=== PATIENT | female | born 1960 | race Caucasian/White ===

== ENCOUNTER 2018-10-20 09:30 | Inpatient (IN) | payer BC ==
[2018-10-20 11:41] LABS: Hemoglobin 14.3 g/dL (12.0-16.0); Mean Corpuscular HGB CONC 32.3 g/dL (32.0-36.0); Mean Corpuscular Hemoglobin 31.3 pg (27.0-31.0); Mean Corpuscular Volume 96.8 fL (78.0-98.0); Mean Platelet Volume 7.6 fL (7.4-10.4); Platelet Count 304 thou/uL (130-400); RBC Distribution Width 12.4 % (11.5-14.5); Red Blood Cell (RBC) Count 4.58 mill/uL (4.20-5.40); White Blood Cell (WBC) Count 10.6 thou/uL (4.8-10.8)
[2018-10-20 12:06] LABS: Anion Gap 15 mmol/L (10-20); BUN (Urea Nitrogen) 16 mg/dL (9.8-20.1); Calc. Creatinine Clearance 0 mL/min (70-130); Calcium 9.6 mg/dL (7.8-10.44); Carbon Dioxide 26 mmol/L (22-29); Chloride 104 mmol/L (98-107); Estimated GFR-MDRD 78; Glucose 90 mg/dL (70-105); Potassium 4.5 mmol/L (3.5-5.1); Sodium 140 mmol/L (136-145)
[2018-10-21] MEDS ORDERED: Fentanyl 250 MCG/5 ML VIAL ONE (06:25)
[2018-10-21] MEDS ORDERED: Midazolam HCl 5 mg/5 ml Vial ONE (06:25)
[2018-10-21] MEDS ORDERED: Albumin 5% 500 ML ONE (06:28)
[2018-10-21] MEDS ORDERED: Heparin 10,000 UNITS/1 ML VIAL 30,000 UNITS in Sodium Chloride 0.9% 1,000 ML FS SCH (06:45)
[2018-10-21] MEDS ORDERED: Midazolam HCl 2 mg/2 ml Vial ONE (06:47)
[2018-10-21] MEDS ORDERED: Fentanyl 100 MCG/2 ML VIAL ONE (10:10)
[2018-10-21] MEDS ORDERED: Protamine Sulfate 50 MG/5 ML VIAL ONE (10:22)
[2018-10-21] MEDS ORDERED: Potassium Chloride 20 MEQ/100 ML PREMIX BAG IVPB PRN (10:30)
[2018-10-21] MEDS ORDERED: Ondansetron PF 4 MG/2 ML Vial IVP PRN (10:30)
[2018-10-21] MEDS ORDERED: Hetastarch 6% 500 ML 500 ML IVPB PRN (10:30)
[2018-10-21] MEDS ORDERED: Promethazine HCl 25 MG/ML VIAL IM PRN (10:30)
[2018-10-21] MEDS ORDERED: hydrALAZINE 20 MG/ML VIAL SLOW IVP PRN (10:30)
[2018-10-21] MEDS ORDERED: Fentanyl 100 MCG/2 ML VIAL SLOW IVP PRN ×2 (10:30)
[2018-10-21] MEDS ORDERED: Mag-Al 1200 mg/1200 mg/30 ML UDCUP PO PRN (10:30)
[2018-10-21] MEDS ORDERED: Magnesium 2 GM/50 ML 2 GM in Premix Bag 1 BAG IVPB SCH (10:30)
[2018-10-21] MEDS ORDERED: Guaifenesin DM 100-10/5 ML UDCUP PO PRN (10:30)
[2018-10-21] MEDS ORDERED: Morphine 2 MG/ML SYRINGE SLOW IVP PRN (10:30)
[2018-10-21] MEDS ORDERED: Bisacodyl 10 MG SUPP PR PRN (10:30)
[2018-10-21] MEDS ORDERED: DOPamine 400 MG/D5W 250 ML 250 ML IVPB PRN (10:30)
[2018-10-21] MEDS ORDERED: Acetaminophen 325 MG TAB PO PRN (10:30)
[2018-10-21] MEDS ORDERED: Post-Op Insulin Drip Protocol IVPB ONE (10:30)
[2018-10-21] MEDS ORDERED: Norepinephrine 8 MG/0.9% NS 250 ML IVPB PRN (10:30)
[2018-10-21] MEDS ORDERED: Bisacodyl 5 MG TAB PO PRN (10:30)
[2018-10-21] MEDS ORDERED: Nitroglycerin 50 MG/250 ML BOT 250 ML IVPB PRN (10:30)
[2018-10-21] MEDS ORDERED: HUMULIN R 100 UNITS in Sodium Chloride 0.9% 100 ML IVPB SCH (10:47)
[2018-10-21] MEDS ORDERED: Dextrose 50% Abboject 50 ML SYRINGE SLOW IVP PRN (10:47)
[2018-10-21] MEDS ORDERED: Dextrose 5% in Water 1,000 ML IV PRN (10:47)
[2018-10-21 11:06] LABS: Actual Bicarbonate (HCO3a) 23.5 mEq/L (22-28); Base Excess (BEa) -1.1 mEq/L (-2.0 to +3.0); CO2 Tension 39.2 mmHg (35.0-45.0); Calcium, Ionized 1.03 mmol/L (1.12-1.30); Carboxyhemoglobin (COHb) 0.9 gm% (0.0-3.0); Hemoglobin (Hb) 12.6 g/dL (12.0-16.0)
[2018-10-21 11:08] LABS: #Eosinphils 0.2 thou/uL (0.0-0.7); #Lymphocytes 1.7 thou/uL (1.20-3.40); #Monocytes 0.3 thou/uL (0.11-0.59); #Neutrophils 9.5 thou/uL (1.40-6.50); %Basophils 0.4 % (0.0-1.0); %Eosinophils 1.7 % (0.0-10.0); %Lymphocytes 14.2 % (21.0-51.0); %Monocytes 2.4 % (0.0-10.0); %Neutrophils 81.2 % (42.0-75.0); Hemoglobin 12.3 g/dL (12.0-16.0); Mean Corpuscular HGB CONC 33.2 g/dL (32.0-36.0); Mean Corpuscular Hemoglobin 31.4 pg (27.0-31.0); Mean Corpuscular Volume 94.6 fL (78.0-98.0); Mean Platelet Volume 7.3 fL (7.4-10.4); Platelet Count 198 thou/uL (130-400); RBC Distribution Width 12.4 % (11.5-14.5); White Blood Cell (WBC) Count 11.7 thou/uL (4.8-10.8)
[2018-10-21 11:12] LABS: INR-International Normal Ratio 1.3; PTT 30.5 SEC (22.9-36.1); Prothrombin Time 16.1 SEC (12.0-14.7)
[2018-10-21] MEDS: Sodium Chloride 0.9% 1,000 ML IV SCH (11:12)
[2018-10-21 11:18] LABS: Puncture Site ALINE
[2018-10-21 11:52] LABS: Anion Gap 13 mmol/L (10-20); BUN (Urea Nitrogen) 10 mg/dL (9.8-20.1); Calc. Creatinine Clearance 131 mL/min (70-130); Calcium 7.5 mg/dL (7.8-10.44); Carbon Dioxide 21 mmol/L (22-29); Chloride 111 mmol/L (98-107); Estimated GFR-MDRD Greater than 90; Glucose 110 mg/dL (70-105); Potassium 3.7 mmol/L (3.5-5.1); Sodium 141 mmol/L (136-145)
[2018-10-21] MEDS: Insulin Regular 300 UNITS/3 ML VIAL SC PRN ×2 (12:28→16:56)
[2018-10-21] MEDS: CEFAZOLIN 2 GM in Premix Bag 1 BAG IVPB SCH ×2 (12:51→21:30)
[2018-10-21] MEDS ORDERED: Thrombin 5000 UNITS/5 ML VIAL ONE (13:03)
[2018-10-21] MEDS ORDERED: PROPOFOL 200 MG/20 ML VIAL ONE (13:03)
[2018-10-21] MEDS ORDERED: Lidocaine 2% PF 100 mg/5 ml Syringe ONE (13:03)
[2018-10-21] MEDS ORDERED: Potassium Chloride 60 MEQ/30 ML VIAL ONE (13:03)
[2018-10-21] MEDS ORDERED: Magnesium 5 GM/10 ML VIAL ONE (13:03)
[2018-10-21] MEDS ORDERED: Rocuronium Bromide 10 MG/ML (10ML VIAL) ONE (13:03)
[2018-10-21] MEDS ORDERED: Cardioplegic Soln 1,000 ML BAG ONE (13:03)
[2018-10-21] MEDS ORDERED: Dexamethasone 20 MG/5 ML VIAL ONE (13:03)
[2018-10-21] MEDS ORDERED: Calcium Chloride 1 GM/10 ML Abboject SYRINGE ONE (13:03)
[2018-10-21] MEDS ORDERED: Aminocaproic Acid 5 GM/20 ML VIAL ONE (13:03)
[2018-10-21] MEDS ORDERED: Heparin 30,000 units/30 ml VIAL ONE (13:03)
[2018-10-21] MEDS ORDERED: Ondansetron PF 4 MG/2 ML Vial ONE (13:03)
[2018-10-21] MEDS ORDERED: Heparin 5,000 UNITS/ML VIAL ONE (13:03)
[2018-10-21] MEDS ORDERED: Sodium Bicarb 50 MEQ/50 ML VIAL ONE (13:03)
[2018-10-21] MEDS ORDERED: Papaverine 60 MG/2 ML VIAL ONE (13:03)
[2018-10-21] MEDS ORDERED: Mannitol 12.5 GM/50 ML ONE (13:03)
[2018-10-21] MEDS ORDERED: Vecuronium 10 MG VIAL ONE (13:03)
[2018-10-21] MEDS ORDERED: Protamine Sulfate 250 MG/25 ML VIAL ONE (13:03)
[2018-10-21 13:04] LABS: Actual Bicarbonate (HCO3a) 19.8 mEq/L (22-28); Base Excess (BEa) -6.2 mEq/L (-2.0 to +3.0); CO2 Tension 40.6 mmHg (35.0-45.0); Calcium, Ionized 1.04 mmol/L (1.12-1.30); Carboxyhemoglobin (COHb) 0.8 gm% (0.0-3.0); Hemoglobin (Hb) 12.1 g/dL (12.0-16.0); O2 Tension (PaO2) 79.2 mmHg (80.0-100.0); Potassium - ABG Lab 4.31 mmol/L (3.70-5.30); pH, Arterial 7.31 (7.35-7.45)
[2018-10-21 13:06] LABS: Puncture Site ALINE
--- NOTE | 2018-10-21 13:12 | RAD ---
AP CHEST: Date: 10/21/18 HISTORY: Postop sternotomy follow-up. FINDINGS/IMPRESSION: ET tube has tip at the supriya and probably should be slightly retracted. Central line overlies the SVC. Chest drainage catheters are noted. There is a pleural reflection left lateral chest wall consistent with a small loculated pneumothorax. Lungs are otherwise clear. No infiltrate. Above findings relayed to Mika, patient's CCU nurse, at time of dictation. CODE CR. POS: KEENAN
--- NOTE | 2018-10-21 14:04 | OP ---
DATE OF PROCEDURE: 10/21/2018 PREOPERATIVE DIAGNOSIS: Coronary artery disease. PROCEDURES PERFORMED: Coronary artery bypass graft x2, saphenous vein good quality to a 2 mm distal right coronary artery and small left internal mammary artery with good flow to a small left anterior descending probably 1.25 mm. PLANER OPERATOR / GRADER: John Louis MD DESCRIPTION OF PROCEDURE: After adequate anesthesia has been obtained, the patient was prepped and draped. Dr. Louis harvested the left greater saphenous vein while I performed a median sternotomy. After opening the sternum, the left internal mammary artery was harvested entering the left chest in one small area. The patient was heparinized. The mammary divided distally and treated with intraluminal papaverine. It was passed posterior to the thymus gland and the pericardium was opened and incised to allow more direct access to the LAD. Aorta and right atrium were cannulated. Cardiopulmonary bypass instituted. Vessels inspected for grafting. The aorta crossclamped and a liter of cold blood cardioplegia given through the aortic root. The right coronary artery was opened and end-to-side anastomosis completed here. Following this saphenous vein anastomosis, the LAD was opened, distal to palpable disease. GOOD to LAD anastomosis was completed here and as mentioned, both GOOD and LAD were very small vessels. Following completion of this, flow was restored. Cross-clamp was removed, partial occluding clamp placed and a single proximal anastomosis performed on the aortic root and marked with a ring. Suture lines were hemostatic and the patient was then weaned from cardiopulmonary bypass. Cannula was removed and protamine was given systemically. After ensuring good hemostasis, the sternum was reapproximated over a mediastinal and left pleural drain using #7 interrupted wire with vancomycin paste on the sternal edges, platelet rich blood and platelet poor plasma. Subcutaneous tissue and skin were closed in layers. Job ID: [id number]
[2018-10-21] MEDS: HYDROcodone/Acetaminophen 5/325 mg Tablet PO PRN ×2 (14:59→21:31)
[2018-10-21 16:59] LABS: Hemoglobin 10.9 g/dL (12.0-16.0)
[2018-10-21 17:11] LABS: Potassium 4.2 mmol/L (3.5-5.1)
[2018-10-21] MEDS: Ketorolac Tromethamine 30 MG/ML VIAL IVP SCH (18:12)
[2018-10-21] MEDS: Famotidine/PF 20 mg/2ml Vial SLOW IVP SCH (21:30)
[2018-10-22] MEDS: Ketorolac Tromethamine 30 MG/ML VIAL IVP SCH ×5 (00:14→23:41)
[2018-10-22] MEDS: Sodium Chloride 0.9% 1,000 ML IV SCH ×2 (00:30→09:26)
[2018-10-22 04:37] LABS: #Lymphocytes 1.7 thou/uL (1.20-3.40); #Monocytes 1.4 thou/uL (0.11-0.59); #Neutrophils 9.6 thou/uL (1.40-6.50); %Basophils 0.3 % (0.0-1.0); %Eosinophils 0.3 % (0.0-10.0); %Lymphocytes 13.6 % (21.0-51.0); %Monocytes 11.1 % (0.0-10.0); %Neutrophils 74.7 % (42.0-75.0); Hemoglobin 10.1 g/dL (12.0-16.0); Mean Corpuscular HGB CONC 32.8 g/dL (32.0-36.0); Mean Corpuscular Hemoglobin 31.7 pg (27.0-31.0); Mean Corpuscular Volume 96.9 fL (78.0-98.0); Mean Platelet Volume 7.4 fL (7.4-10.4); Platelet Count 205 thou/uL (130-400); RBC Distribution Width 12.5 % (11.5-14.5); Red Blood Cell (RBC) Count 3.19 mill/uL (4.20-5.40); White Blood Cell (WBC) Count 12.8 thou/uL (4.8-10.8)
[2018-10-22 04:57] LABS: Anion Gap 9 mmol/L (10-20); BUN (Urea Nitrogen) 7 mg/dL (9.8-20.1); Calc. Creatinine Clearance 127 mL/min (70-130); Calcium 8.1 mg/dL (7.8-10.44); Carbon Dioxide 24 mmol/L (22-29); Chloride 109 mmol/L (98-107); Estimated GFR-MDRD Greater than 90; Glucose 98 mg/dL (70-105); Sodium 138 mmol/L (136-145)
[2018-10-22] MEDS: CEFAZOLIN 2 GM in Premix Bag 1 BAG IVPB SCH (05:22)
[2018-10-22] MEDS: HYDROcodone/Acetaminophen 5/325 mg Tablet PO PRN ×4 (05:23→21:04)
[2018-10-22] MEDS ORDERED: Aspirin 325 MG TAB PO SCH (09:00)
[2018-10-22] MEDS: Famotidine/PF 20 mg/2ml Vial SLOW IVP SCH (09:28)
--- NOTE | 2018-10-22 10:13 | RAD ---
ONE VIEW CHEST: COMPARISON: 10/21/2018. HISTORY: Status post open heart surgery. FINDINGS: Removal of endotracheal tube. Sternotomy wires, vascular catheter, mediastinal drainage catheter, an d left-sided chest tube are again noted. No pneumothorax. IMPRESSION: Findings compatible with recent open heart surgery. POS: OFF
[2018-10-22] MEDS ORDERED: Nitroglycerin 0.4 MG TAB (25 Tab Bottle) SL PRN (14:47)
[2018-10-22] MEDS ORDERED: Mineral Oil ENEMA PR PRN (14:47)
[2018-10-22] MEDS ORDERED: Bisacodyl 10 MG SUPP PR PRN (14:47)
[2018-10-22] MEDS ORDERED: Guaifenesin DM 100-10/5 ML UDCUP PO PRN (14:47)
[2018-10-22] MEDS ORDERED: Mag-Al 1200 mg/1200 mg/30 ML UDCUP PO PRN (14:47)
[2018-10-22] MEDS ORDERED: diphenhydrAMINE 25 MG CAP PO PRN (14:47)
[2018-10-22] MEDS ORDERED: Bisacodyl 5 MG TAB PO PRN (14:47)
[2018-10-22] MEDS ORDERED: Artificial Tears 18 DROP/0.9 ML EA EYE PRN (14:47)
[2018-10-22] MEDS ORDERED: Zolpidem Tartrate 5 MG TAB PO PRN (14:47)
[2018-10-22] MEDS: Docusate 100 MG CAP PO SCH (21:03)
[2018-10-22] MEDS: Rosuvastatin 20 MG TAB PO SCH (21:03)
[2018-10-23 05:47] LABS: #Eosinphils 0.2 thou/uL (0.0-0.7); #Monocytes 1.4 thou/uL (0.11-0.59); #Neutrophils 8.4 thou/uL (1.40-6.50); %Basophils 0.3 % (0.0-1.0); %Eosinophils 1.8 % (0.0-10.0); %Lymphocytes 16.4 % (21.0-51.0); %Monocytes 11.9 % (0.0-10.0); %Neutrophils 69.6 % (42.0-75.0); Hemoglobin 10.6 g/dL (12.0-16.0); Mean Corpuscular HGB CONC 32.8 g/dL (32.0-36.0); Mean Corpuscular Hemoglobin 31.7 pg (27.0-31.0); Mean Corpuscular Volume 96.5 fL (78.0-98.0); Mean Platelet Volume 7.6 fL (7.4-10.4); Platelet Count 217 thou/uL (130-400); RBC Distribution Width 12.4 % (11.5-14.5); Red Blood Cell (RBC) Count 3.36 mill/uL (4.20-5.40)
[2018-10-23 06:07] LABS: Anion Gap 12 mmol/L (10-20); BUN (Urea Nitrogen) 8 mg/dL (9.8-20.1); Calc. Creatinine Clearance 150 mL/min (70-130); Calcium 8.4 mg/dL (7.8-10.44); Carbon Dioxide 24 mmol/L (22-29); Chloride 107 mmol/L (98-107); Estimated GFR-MDRD Greater than 90; Glucose 98 mg/dL (70-105); Potassium 4.2 mmol/L (3.5-5.1); Sodium 139 mmol/L (136-145)
[2018-10-23] MEDS: Ketorolac Tromethamine 30 MG/ML VIAL IVP SCH ×3 (06:07→17:35)
[2018-10-23] MEDS ORDERED: Furosemide 40 MG/4 ML VIAL SLOW IVP SCH (08:45)
--- NOTE | 2018-10-23 08:56 | RAD ---
CHEST 1 VIEW: HISTORY: Status post CABG. COMPARISON: 10/22/2018. FINDINGS: There are sternotomy wires. There is a mediastinal drainage catheter, left-sided chest tube, and a r ight-sided central venous catheter. Normal cardiac silhouette. Bibasilar pleural effusions are susp ected. No pneumothorax. IMPRESSION: Findings compatible with recent open heart surgery. POS: OFF
[2018-10-23] MEDS: Docusate 100 MG CAP PO SCH ×2 (09:02→20:55)
[2018-10-23] MEDS: Aspirin 325 mg Enteric Coated Tablet PO SCH (09:02)
[2018-10-23] MEDS ORDERED: Furosemide 40 MG TAB PO SCH (14:00)
[2018-10-23] MEDS: HYDROcodone/Acetaminophen 5/325 mg Tablet PO PRN (20:55)
[2018-10-23] MEDS: Rosuvastatin 20 MG TAB PO SCH (20:55)
[2018-10-24] MEDS: Ketorolac Tromethamine 30 MG/ML VIAL IVP SCH ×2 (00:24→05:09)
[2018-10-24] MEDS ORDERED: Furosemide 40 MG TAB PO SCH (06:00)
[2018-10-24] MEDS: Docusate 100 MG CAP PO SCH ×2 (08:50→21:34)
[2018-10-24] MEDS: Aspirin 325 mg Enteric Coated Tablet PO SCH (08:51)
[2018-10-24] MEDS ORDERED: Metoprolol Tartrate 5 MG/5 ML VIAL IVP SCH (09:15)
[2018-10-24] MEDS: Metoprolol Tartrate 25 MG TAB PO SCH ×2 (12:41→21:35)
[2018-10-24] MEDS: Rosuvastatin 20 MG TAB PO SCH (21:34)
[2018-10-25] MEDS ORDERED: Furosemide 40 MG TAB PO SCH (07:15)
[2018-10-25] MEDS: Aspirin 325 mg Enteric Coated Tablet PO SCH (08:26)
[2018-10-25] MEDS: Docusate 100 MG CAP PO SCH ×2 (08:26→20:22)
[2018-10-25] MEDS: Metoprolol Tartrate 25 MG TAB PO SCH (08:26)
[2018-10-25] MEDS ORDERED: Furosemide 40 MG/4 ML VIAL SLOW IVP SCH (12:00)
[2018-10-25 12:57] VITALS: BMI 28.5
[2018-10-25] MEDS: Rosuvastatin 20 MG TAB PO SCH (20:22)
[2018-10-26] MEDS: Aspirin 325 mg Enteric Coated Tablet PO SCH (08:26)
[2018-10-26] MEDS: Docusate 100 MG CAP PO SCH (08:26)
--- NOTE | 2018-10-26 09:22 | DIS ---
DATE OF ADMISSION: 10/21/2018 DATE OF DISCHARGE: 10/26/2018 HOSPITAL COURSE: Kayla Coon was admitted 10/21 for coronary bypass grafting to the right coronary artery and LAD. Her postoperative course was uneventful. She had a very brief episode of atrial fibrillation lasting less than a couple of minutes, but otherwise did well with no need for pain medicines at discharge. She will be discharged on metoprolol 25 b.i.d., her Crestor will be increased from 10 to 20 mg prior to admission and otherwise she will resume her home medications. Discharge and followup instructions have been given. Job ID: [id number]
[2018-10-26 12:20] VITALS: BP 112/69; TEMP 98.8
[2018-10-26 12:49] LABS: CO2 Tension 32.8 mmHg (35.0-45.0); pH, Arterial 7.48 (7.35-7.45)
[2018-10-26 12:49] LABS: Actual Bicarbonate (HCO3a) 23.4 mEq/L (22-28); Analyzer IN Cardio OR; Base Excess (BEa) -0.8 mEq/L (-2.0 to +3.0); CO2 Tension 37.2 mmHg (35.0-45.0); Calcium, Ionized 1.12 mmol/L (1.12-1.30); Carboxyhemoglobin (COHb) 0.8 gm% (0.0-3.0); O2 Tension (PaO2) 288.7 mmHg (80.0-100.0); Potassium - ABG Lab 3.71 mmol/L (3.70-5.30); pH, Arterial 7.42 (7.35-7.45)
[2018-10-26 12:49] LABS: Actual Bicarbonate (HCO3a) 23.8 mEq/L (22-28); Analyzer IN Cardio OR; Base Excess (BEa) -1.4 mEq/L (-2.0 to +3.0); CO2 Tension 42.1 mmHg (35.0-45.0); Calcium, Ionized 1.09 mmol/L (1.12-1.30); Carboxyhemoglobin (COHb) 0.6 gm% (0.0-3.0); Hemoglobin (Hb) 12.7 g/dL (12.0-16.0); Potassium - ABG Lab 3.54 mmol/L (3.70-5.30); pH, Arterial 7.37 (7.35-7.45)
[2018-10-26 12:50] LABS: Actual Bicarbonate (HCO3a) 22.7 mEq/L (22-28); Analyzer IN Cardio OR; CO2 Tension 34.2 mmHg (35.0-45.0); Calcium, Ionized 1.01 mmol/L (1.12-1.30); Carboxyhemoglobin (COHb) 0.3 gm% (0.0-3.0); Hemoglobin (Hb) 10.2 g/dL (12.0-16.0); O2 Tension (PaO2) 368.3 mmHg (80.0-100.0); Potassium - ABG Lab 4.05 mmol/L (3.70-5.30); pH, Arterial 7.44 (7.35-7.45)
[2018-10-26 12:50] LABS: Actual Bicarbonate (HCO3a) 23.9 mEq/L (22-28); Analyzer IN Cardio OR; Base Excess (BEa) 0.8 mEq/L (-2.0 to +3.0); Carboxyhemoglobin (COHb) 0.4 gm% (0.0-3.0); Hemoglobin (Hb) 10.4 g/dL (12.0-16.0); Potassium - ABG Lab 3.97 mmol/L (3.70-5.30)
[2018-10-26 12:50] LABS: Actual Bicarbonate (HCO3a) 21.7 mEq/L (22-28); Analyzer IN Cardio OR; Base Excess (BEa) -1.4 mEq/L (-2.0 to +3.0); CO2 Tension 31.1 mmHg (35.0-45.0); Calcium, Ionized 0.95 mmol/L (1.12-1.30); Carboxyhemoglobin (COHb) 0.3 gm% (0.0-3.0); Hemoglobin (Hb) 10.3 g/dL (12.0-16.0); O2 Tension (PaO2) 212.6 mmHg (80.0-100.0); Potassium - ABG Lab 3.66 mmol/L (3.70-5.30); pH, Arterial 7.46 (7.35-7.45)
[2018-10-26 12:51] LABS: Puncture Site ALINE
[2018-10-26 12:51] LABS: Puncture Site ALINE
[2018-10-26 12:52] LABS: Puncture Site ALINE
[2018-10-26 12:53] LABS: Puncture Site ALINE
[2018-10-26 12:53] LABS: Puncture Site ALINE
== END 2018-10-26 13:30 | disposition home or self-care (01) | DRG 236 ==
LOC: SURG A 10-21 05:50 → CCU 10-21 10:58 → 2NO 10-22 17:26
PROVIDERS: ADMIT Thoracic Surgery (Cardiothoracic Vascular Surgery); ATTEND Thoracic Surgery (Cardiothoracic Vascular Surgery)
PROC: 02100Z9 Bypass Coronary Artery, One Artery from Left Internal Mammary, Open Approach (ICD-10-PCS; principal; 2018-10-21)
PROC: 021009W Bypass Coronary Artery, One Artery from Aorta with Autologous Venous Tissue, Open Approach (ICD-10-PCS; 2018-10-21)
PROC: 06BQ4ZZ Excision of Left Saphenous Vein, Percutaneous Endoscopic Approach (ICD-10-PCS; 2018-10-21)
PROC: 5A1221Z Performance of Cardiac Output, Continuous (ICD-10-PCS; 2018-10-21)
DX: I25.10 Atherosclerotic heart disease of native coronary artery without angina pectoris (principal); I10 Essential (primary) hypertension; E78.5 Hyperlipidemia, unspecified; I48.91 Unspecified atrial fibrillation; Z95.5 Presence of coronary angioplasty implant and graft; Z87.891 Personal history of nicotine dependence; Z86.73 Personal history of transient ischemic attack (TIA), and cerebral infarction without residual deficits
CPT/HCPCS: 36415; 36416; 36430; 71045; 80048; 82805; 85025; 85027; 85610; 85730; 86850; 86900; 86901; 93005; 93010; 93798; 94002; 94150; J0690; J1100; J1642; J1644; J1815; J1885; J1940; J2001; J2150; J2250; J2270; J2405; J2440; J2704; J2720; J3010; J3370; J3475; J3480; J7050; P9045; S0017; S0028